=== PATIENT | male | born 1965 | race Caucasian/White ===

== ENCOUNTER → 2020-04-11 13:16 | Outpatient (CLI) | payer BC, SELFPAY ==
[2020-03-24 14:03] VITALS: BMI 43.1
--- NOTE | 2020-04-11 13:37 | CT_ITS ---
STUDY: CT ABDOMEN AND PELVIS WITH CONTRAST REASON FOR EXAM: Male, 54 years old. INTERMITTENT MID ABD PAIN WITH NAUSEA RADIATION DOSAGE (If Supplied By Facility): CTDIvol = ( 18.57 ) mGy, DLP = ( 1298.91 ) mGycm TECHNIQUE: Transaxial images were obtained from the dome of the diaphragm to the symphysis pubis with oral contrast. Oral and amp; IV Readi-CAT and amp; 100mL Isovue-300 was administered. Sagittal and coronal images were reconstructed. Individualized dose optimization techniques were used for this CT. COMPARISON: None. FINDINGS: The visualized lung bases are unremarkable. The visualized portions of the heart are within normal limits. There is decreased attenuation of the liver consistent with steatosis. Normal gallbladder and extrahepatic biliary system. There is mild splenomegaly. Normal pancreas. Normal bilateral adrenal glands. Normal right kidney. Normal left kidney. There is a small hiatal hernia. Normal small intestine. There are scattered colonic diverticula consistent with diverticulosis. The appendix is visualized and appears normal. Normal abdominal aorta. Normal inferior vena cava. There is borderline retroperitoneal lymphadenopathy with enlarged nodes no greater than 10mm in the short axis diameter. Normal urinary bladder. Focal central prostatic calcification. There is a small umbilical hernia containing fat. Small left inguinal hernia containing fat. There are mild degenerative changes of the visualized lower lumbar spine. CT/Abdomen/Pelvis WITH Contrast IMPRESSION: Small umbilical hernia and left inguinal hernia containing fat. Diffuse fatty infiltration of the liver. Mild degree of splenomegaly. Electronically Signed: Lukas Proctor, at 15:11 EST , Service support ,
== END ==
PROVIDERS: PCP Family Medicine; Referring Provider Surgery; Visit Provider Surgery
DX: R10.9 Unspecified abdominal pain (principal); R11.10 Vomiting, unspecified
CPT/HCPCS: 74177; Q9967; A4216

== ENCOUNTER 2020-04-13 21:12 | Emergency (ER) | payer BC, SELFPAY ==
[2020-04-13 21:13] VITALS: BP 153/119; PULSE 93; RESP 20; TEMP 36.6; O2SAT 98; BMI 42.5
[2020-04-13 21:58] VITALS: BP 161/109; PULSE 93; RESP 20; TEMP 36.6; O2SAT 98
--- NOTE | 2020-04-13 22:18 | ED.VIS.GEN ---
History of Present Illness Chief Complaint: Abd Pain Informant: Patient Narrative: D4-year-old male presenting with abdominal pain. He states it currently is resolving. He states he is has waves of pain over his entire abdomen. This is been an issue for about a year. He followed up outpatient with his PCP who referred him to Dr. Sood. Dr. Sood examined him and sent him for a CT. His CT of the abdomen pelvis was negative. Patient says that Dr. Sood says he had might have a slight umbilical hernia. Patient does have associated nausea with this. He is not vomiting. He denies constipation or diarrhea. No fever or chills. He states that he has been trying to modify his diet and see what triggers his abdominal pain. Today he had eggs and toast for breakfast and avocado with tomato for lunch. Past Medical History - Allergies and Home Meds Allergies/Adverse Reactions: Allergies No Known Allergies Allergy (Verified 04/12/20 08:56) Primary Care Physician: Winston Gan [Primary Care Provider] - Prior records reviewed: Yes Past Medical History: - - GERD, umbilical hernia Lives: With Family Smoking Status: Never smoker Alcohol: None Drugs: None Review of Systems General: Denies: Chills, Fever, Sweats Eyes: Denies: Visual changes - bilaterally, Diplopia ENT: Denies: Rhinorrhea, Sore throat Cardiovascular: Denies: Chest pain, Palpitations Respiratory: Denies: Dyspnea, Cough, Dyspnea on exertion Gastrointestinal: Reports: Abdominal pain, Nausea. Denies: Vomiting, Diarrhea Genitourinary: Denies: Dysuria, Hematuria, Frequency Musculoskeletal: Denies: Back pain, Extremity Pain Skin: Denies: Rash, Wounds Neurological: Denies: Headache, Weakness, Numbness Physical Exam Vital Signs/Narrative: Vital Signs Temp Pulse Resp BP Pulse Ox 04/13/20 21:58 97.8 F 93 20 H 161/109 H 98 04/13/20 21:13 97.8 F 93 20 H 153/119 H 98 General: Obese, No Acute Distress Head: Normocephalic, Atraumatic Eyes: Perrl, EOMI ENT: Moist mucous membranes Cardiovascular: Regular rate, Regular rhythm Respiratory: No distress, CTA bilaterally Abdomen: Soft, Tender - Mild diffuse tenderness. Back: Nontender, Normal Inspection Extremities: Nontender, No edema Skin: Normal color, No rash Neurological: Alert, Oriented x3 Psychological: Normal affect Diagnostic/Tx/Re-eval Laboratory Data 04/13/20 04/13/20 21:25 21:25 WBC 8.8 RBC 5.60 Hgb 17.6 H Hct 50.8 MCV 90.7 MCH 31.4 MCHC 34.6 RDW Std Deviation 40.4 RDW Coeff of Paulina 12.4 Plt Count 295 MPV 9.7 Immature Gran % (Auto) 0.800 Neut % (Auto) 46.0 L Lymph % (Auto) 37.0 [place] % (Auto) 11.4 H Eos % (Auto) 4.0 Baso % (Auto) 0.8 Absolute Neuts (auto) 4.0 Absolute Lymphs (auto) 3.25 Nucleated RBC % 0 Sodium 138 Potassium 4.0 Chloride 104 Carbon Dioxide 25.0 Anion Gap 9 BUN 21 H Creatinine 1.53 H Estim Creat Clear Calc 55.66 Est GFR (MDRD) Af Amer 61 Est GFR (MDRD) Non-Af 50 L BUN/Creatinine Ratio 13.7 Glucose 142 H Calcium 9.7 Total Bilirubin 0.40 AST 24 ALT 58 Alkaline Phosphatase 62 Total Protein 8.1 Albumin 4.1 Globulin 4.0 Albumin/Globulin Ratio 1.0 Lipase 118 - Medical Decision Making Patient presents with abdominal pain. He states that it is improving now. He states he has had this for about a year on and off. He has had a CT this week with Dr. Sood. On exam he has mild generalized pain. He has no focal tenderness. He is nonperitoneal. He declines anything for pain. His lab work was normal. On reevaluation he is pain-free and felt well. I do not believe he needs a repeat CT scan at this time. Patient is amenable to this plan. He is given return precautions. Impression: 1. Abdominal pain unknown cause male ED Disposition - Plan for ED Patient: Disposition: Home or Assisted Living Instructions: ED Unknown Causes of Abdominal ... Referrals: Winston Gan [Primary Care Provider] -
[2020-04-13 23:33] LABS: Absolute Lymphocyte Count 3.25 X10^3/uL (0.83-4.51); Basophil# 0.07 X10^3/uL; Basophil% 0.8 % (0-1); Eosinophil# 0.35 X10^3/uL; Hematocrit 50.8 % (40-54); Hemoglobin 17.6 g/dL (13.0-16.5); Lymphocyte # 3.25 X10^3/ul (4.0); Mean Corp Hgb Conc 34.6 g/dL (32-36); Mean Corpuscular Hgb 31.4 pg (27.0-32.0); Mean Corpuscular Volume 90.7 fL (80-94); Mean Platelet Vol. 9.7 fl (6.2-12.0); Monocyte% 11.4 % (0-10); NRBC Flagged by Analyzer 0 % (0-5); Neutrophil # 4.04 X10^3/uL (2.7-7.7); Platelet Count 295 K/mm3 (150-450); RBC Distribution Width CV 12.4 % (11.6-14.6); RBC Distribution Width SD 40.4 fl (35.1-43.9); White Blood Count 8.8 K/mm3 (4.4-11.0)
[2020-04-13 23:38] LABS: AST(SGOT) 24 U/L (15-37); Alanine Aminotransfer ALT/SGPT 58 U/L (16-61); Albumin, Serum 4.1 g/dL (3.2-5.0); Alkaline Phosphatase 62 U/L (45-117); Anion Gap 9 (5-15); BUN 21 mg/dL (7-18); BUN/Creat Ratio 13.7 RATIO (10-20); Calcium,Total 9.7 mg/dL (8.5-10.1); Chloride 104 mmol/L (98-107); Creatinine, Serum 1.53 mg/dL (0.70-1.30); EST Glomerular Filtration Rate 50 mL/min (>60); Est Glom Filt Rate - Afr Amer 61 mL/min (>60); Estimated Creatinine Clearance 55.66 ml/min; Glucose 142 mg/dL (74-106); Lipase 118 U/L (73-393); Protein, Total 8.1 g/dL (6.4-8.2); Sodium Level 138 mmol/L (136-145)
== END 2020-04-14 00:30 | disposition home or self-care (01) ==
PROVIDERS: Emergency Provider Student in an Organized Health Care Education/Training Program; PCP Family Medicine
DX: R10.84 Generalized abdominal pain (principal); K21.9 Gastro-esophageal reflux disease without esophagitis; R11.0 Nausea; E66.9 Obesity, unspecified
CPT/HCPCS: 80053; 83690; 85025; 99283; A4216

== ENCOUNTER → 2020-04-15 09:57 | Outpatient (CLI) | payer BC, SELFPAY ==
[2020-04-13 21:13] VITALS: BMI 42.5
[2020-04-15 12:26] LABS: Anion Gap 5 (5-15); BUN 22 mg/dL (7-18); BUN/Creat Ratio 15.3 RATIO (10-20); Calcium,Total 8.9 mg/dL (8.5-10.1); Chloride 105 mmol/L (98-107); Creatinine, Serum 1.44 mg/dL (0.70-1.30); EST Glomerular Filtration Rate 54 mL/min (>60); Est Glom Filt Rate - Afr Amer 65 mL/min (>60); Glucose 182 mg/dL (74-106); Hemoglobin A1c 6.2 % (3.8-5.6); Potassium 3.9 mmol/L (3.5-5.1); Sodium Level 135 mmol/L (136-145)
== END ==
PROVIDERS: PCP Family Medicine; Visit Provider Family Medicine
DX: R73.9 Hyperglycemia, unspecified (principal); R10.9 Unspecified abdominal pain; N28.9 Disorder of kidney and ureter, unspecified
CPT/HCPCS: 36415; 80048; 83036

== ENCOUNTER 2020-05-18 08:47 | Day surgery (SDC) | payer BC, SELFPAY ==
[2020-05-10 08:53] VITALS: BMI 42.3
--- NOTE | 2020-05-17 10:37 | EKG12_ITS ---
Test Reason : PREOP Blood Pressure : / mmHG Vent. Rate : 073 BPM Atrial Rate : 073 BPM P-R Int : 164 ms QRS Dur : 102 ms QT Int : 390 ms P-R-T Axes : 022 -23 012 degrees QTc Int : 429 ms Normal sinus rhythm with occasional PVC's Leftward axis Poor R wave progression Confirmed by SHAUN BROCK, CARSON ([id number]), sound editor JAZMYNE VELASCO ([id number]) on 05/18/2020 8:23:51 AM Referred By: Reza Sood Confirmed By:CARSON DUNN MD
--- NOTE | 2020-05-18 05:00 | HP_ITS ---
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 Is patient in pain?: No Allergies No Known Allergies Allergy (Verified 05/10/20 08:54) Medications No Known/Unobtainable [No Known Home Medications] 02/13/16 [History Confirmed 05/10/20] [facility] Medical History GERD (gastroesophageal reflux disease) (Acute) Left inguinal hernia (Acute) Obesity (Acute) Umbilical hernia (Acute) Surgical History History of arthroscopy of right knee (Acute) History of arthroscopy of right knee (Acute) History of colonoscopy (Acute ~2012) Family History Father Heart disease Hypertension Mother Heart disease Hypertension Social History (Updated 05/10/20 @ 09:25 by Kika GARCIA PASwapnaC) Smoking Status: Never smoker HPI HPI Surgical H&P: Yes HPI: MELINDA RECIO, is a 54 M who presents to the office today for an update history and physical. Patient notes he was in the ED with abdominal pain due to the hernia the day after his office visit. Patient denies any further hospitalizations or illnesses. He denies previous cardiac or pulmonary history. He denies history of COVID or recently being exposed to COVID. He denies further pain/discomfort at the hernia site. He denies smoking. Occasionally drinks alcohol. He notes possibly having sleep apnea however he has not been diagnosed. Patient's previous history per Dr. Sood: MELINDA RECIO, is a 54 M who presents to the office today for Follow-up from a CAT scan of his abdomen and pelvis. This is tender it gets hard at times when he is standing he has not noticed any change in his bowel or bladder habits but he has been having increasing nausea. This is been increasing over the last [address] scan confirms a ventral hernia as well as an umbilical hernia. It also raised the question of a left inguinal hernia. He is not experiencing any bulges or discomfort in his left inguinal area. ROS General General: Yes weight change; no appetite, fatigue, colon cancer, breast cancer or weakness HEENT HEENT: No difficulty swallowing, eye injury, eye surgery, swollen glands or hoarseness Endo Endocrine: No thyroid disease, diabetes mellitus, thyroid cancer, Hair loss, heat intolerance or cold intolerance Musc Musculoskeletal: No back problems, arthritis, rheumatoid arthritis, gout or joint pain Cardio Cardiovascular: Yes high blood pressure; no murmur, pacemaker, heart disease, atrial fibrillation, heart attack, heart stent, palpitations, shortness of breat with exertion or chest pain Psych Psychiatric: No depression, anxiety or hearing voices Resp Respiratory: No shortness of breath, No sleep apnea, No cough, No COPD, No asthma, No emphysema, No wheezing Gastro Gastrointestinal: Yes abdominal pain, Yes nausea or vomiting, No diarrhea, No constipation, No blood in stool, Yes acid reflux, No hemorrhoids, No ulcers, No gallbladder problem, No black,tarry stools Neuro Neurologic: No weakness Exam Const General: cooperative, healthy appearing, comfortable, no acute distress [facility] Head: normal to inspection Eyes General: appearance normal, both eyes and all related structures Neck Neck: normal visual inspection Neck mass: No Resp Effort & Inspection: normal respiratory effort Auscultation: clear to auscultation bilaterally Cardio Rate: regular rate Rhythm: regular rhythm Heart Sounds: no murmurs GI Inspection: normal to inspection, obesity Palpation: soft, hernia (small easily reducible) ventral Auscultation: normal bowel sounds Skin General: no rashes or lesions noted Neuro General: no focal motor deficits, CN's II-XI intact bilaterally Extrem General: normal to inspection Psych Appearance: grossly normal Affect: normal affect Assessment & Plan Problems 1. Ventral incisional hernia without obstruction or gangrene K43.[address] Sood will plan to perform a ventral hernia repair with mesh. Procedure details risks and benefits have been reviewed. Patient has had the opportunity to ask and have questions answered. Patient verbally understands and agrees with the plan. Coding Level of Care Code No Charge Diagnoses Ventral incisional hernia without obstruction or gangrene K43.2 Comment Update H&P I have re-examined the patient. There are no clinical changes since date of exam.
[2020-05-18] MEDS: Lactated Ringers 1,000 ML 100 ML IV ×2 (09:44→11:01)
[2020-05-18 09:45] VITALS: BP 148/93; PULSE 68; RESP 16; TEMP 36.6; O2SAT 95; BMI 43.4
[2020-05-18] MEDS: Cefazolin 2 GM in 0.9% Normal Saline 100 ML IV (10:10)
--- NOTE | 2020-05-18 10:20 | PCM.OPRPT ---
Problem List (1) Ventral hernia Status: Acute Qualifiers: Obstruction and gangrene presence: without obstruction or gangrene Qualified Code(s): K43.9 - Ventral hernia without obstruction or gangrene Report of Operation Date of Procedure: 05/18/20 Pre-Operative Diagnosis: Ventral hernia without obstruction or gangrene Post-Operative Diagnosis: Same Surgery/Procedure Performed:: Ventral hernia repair with mesh Type of Anesthesia:: General Anesthesiologist: Dario Clemons Estimated Blood Loss (mL): < 25 cc Description of Procedure: Patient was brought into the operating room. Placed in the supine position. Under excellent general trach intubation the abdomen was sterilely prepped draped in usual fashion. Local was injected supraumbilically. Curvilinear incision was made. Dissection was carried down to the ventral hernia. Ventral hernia was placed back into its preperitoneal space. Electrocautery was used to create a preperitoneal window circumferentially around this ventral hernia defect. I fashioned a large Ventralex mesh into the peritoneal space. I circumferentially tacked it to the surrounding fascia with #1 Nurolon's. I injected 1% lidocaine plain. I was pleased the mesh laid completely flat I had no bleeding whatsoever. I injected local in the subcu. Subcu was brought together with 2-0 Vicryl. Deep dermals of 3-0 Vicryl. Then a running 4-0 Monocryl in the skin. Steri-Strips were applied sterile dressings were applied and the patient tolerated the procedure well. - Admit VTE Documentation VTE Present on Admission: No VTE Mechan Device Prophylaxis: SCD's VTE Pharm Prophylaxis ordered?: No Reason prophylaxis not ordered:: Treatment Not Indicated [id number]: Other Procedure See Notes - [id number]
--- NOTE | 2020-05-18 10:21 | PCM.DC.HER ---
Discharge Diet: Light diet - advance as tolerated Discharge Activity: Return to Normal Activity, May Drive - when you are no longer taking narcotic pain medications., May Shower - with the bandage in place 1-2 days after surgery. Lifting Restrictions: 20 pounds for 8 weeks. Additional Activity Instructions:: Climbing stairs is fine, walking is encouraged. Sitting in bed may be uncomfortable. Sitting up using your lateral muscles (sitting up sideways) is usually more comfortable. Do not drive, work heavy equipment of sign legal documents for 24 hours. If your hernia repair was an ingunial repair, you may have scrotal swelling, an ice pack and/or athletic support can provide more comfort. Pain medications may cause nausea, you should typically eat light foods as you take your pain medications. Pain medications may also cause constipation. If you have difficulty with this, discuss with your doctor. Call your doctor if your incision/area has: Continuous Slow Oozing, Sudden Increased Bleeding, Increased Pain/ Swelling, Increased Redness, Foul Smelling Discharge Call your doctor if you observe: Fever of 101 or Higher Suture Line Care: Avoid Pulling/Pushing, Avoid Pinching/Bending Additional Dressing/Incision Instructions:: Leave the operative bandage on for 2-3 days. When you remove the bandage, leave the steri-strips on place until your follow up appointment or they fall off. Allergies/Adverse Reactions: Allergies No Known Allergies Allergy (Verified 05/18/20 09:44) Medications to take at Discharge Oxycodone HCl/Acetaminophen [Percocet 5/325] 1 - 2 tab PO Q4H PRN PRN 6 Days #30 tab 05/18/20 The following prescriptions were given: Oxycodone HCl/Acetaminophen [Percocet 5/325] 1 - 2 tab PO Q4H PRN PRN 6 Days #30 tab PRN Reason: Pain Transmission Status: Received by [facility] Primary Care Physician: Winston Gan [Primary Care Provider] - Test Results: Test results from this visit will be discussed in further detail at your follow-up appointment, if applicable. Please Follow Up With: Reza Sood MD - [phone] When: Plan to have a follow up appointment in 7 days. Call to schedule.
[2020-05-18] MEDS: Bupivacaine Mpf 0.5% 30 ML VIAL (10:53)
[2020-05-18 11:24] VITALS: BP 131/80; BP 148/93; PULSE 92; RESP 18; TEMP 36.8; O2SAT 98
[2020-05-18 11:45] VITALS: BP 118/94; BP 148/93; PULSE 79; RESP 18; O2SAT 93
[2020-05-18 12:00] VITALS: BP 118/79; BP 148/93; PULSE 76; RESP 18; TEMP 36.7; O2SAT 93
[2020-05-18 13:23] VITALS: BP 131/93; BP 148/93; PULSE 75; RESP 16; TEMP 36.4; O2SAT 98
== END 2020-05-18 13:26 | disposition home or self-care (01) ==
LOC: SDC 08:48 → AC 08:49
PROVIDERS: PCP Family Medicine; Referring Provider Surgery; Visit Provider Surgery
PROC: (CPT 49560; principal; 2020-05-18 10:00)
DX: K43.2 Incisional hernia without obstruction or gangrene (principal); Z20.822 Contact with and (suspected) exposure to COVID-19
CPT/HCPCS: 00832; 49560; 49568; 87426; 93005; C9803; J7120; C1781; J2405

== ENCOUNTER → 2020-07-11 | Outpatient (CLI) | payer BC, SELFPAY | END | disposition home or self-care (01) | LOC: LABSPEC 11:22 | PROVIDERS: PCP Family Medicine; Visit Provider Family Medicine | DX: Z20.828 Contact with and (suspected) exposure to other viral communicable diseases (principal) | CPT/HCPCS: 87635; U0005; U0003 ==

== ENCOUNTER → 2021-01-19 | Outpatient (CLI) | payer BC, SELFPAY | END | disposition home or self-care (01) | LOC: LABSPEC 17:14 | PROVIDERS: PCP Family Medicine; Visit Provider Family Medicine | DX: Z20.822 Contact with and (suspected) exposure to COVID-19 (principal) | CPT/HCPCS: 87635; U0005; U0003 ==

== ENCOUNTER → 2022-12-06 | Outpatient (CLI) | payer BC, SELFPAY ==
[2022-12-06 12:45] LABS: Absolute Lymphocyte Count 2.51 X10^3/uL (0.83-4.51); Absolute Neutrophil Count 2.4 X10^3/uL (2.0-7.7); Basophil# 0.04 X10^3/uL; Basophil% 0.7 % (0-1); Eosinophil# 0.26 X10^3/uL; Eosinophils% 4.4 % (0-5); Hematocrit 47.1 % (40-54); Hemoglobin 15.8 g/dL (13.0-16.5); Lymphocyte # 2.51 X10^3/ul (0.83-4.51); Mean Corp Hgb Conc 33.5 g/dL (32-36); Mean Corpuscular Hgb 30.6 pg (27.0-32.0); Mean Corpuscular Volume 91.3 fL (80-94); Mean Platelet Vol. 9.6 fl (6.2-12.0); Monocyte# 0.71 X10^3/uL; Monocyte% 11.9 % (0-10); NRBC Flagged by Analyzer 0 % (0-5); Neutrophil # 2.42 X10^3/uL (2.7-7.7); Neutrophil % 40.5 % (47-70); Platelet Count 200 K/mm3 (150-450); RBC Distribution Width CV 12.1 % (11.6-14.6); RBC Distribution Width SD 40.5 fl (35.1-43.9); Red Blood Count 5.16 M/mm3 (4.6-6.2)
[2022-12-06 13:12] LABS: AST(SGOT) 19 U/L (15-37); Alanine Aminotransfer ALT/SGPT 46 U/L (16-61); Albumin, Serum 3.6 g/dL (3.2-5.0); Alkaline Phosphatase 55 U/L (45-117); Anion Gap 6 (5-15); BUN 20 mg/dL (7-18); BUN/Creat Ratio 16.7 RATIO (10-20); Calcium,Total 8.6 mg/dL (8.5-10.1); Chloride 103 mmol/L (98-107); Cholesterol 215 mg/dL (200); EST Glomerular Filtration Rate 66 mL/min (>60); Est Glom Filt Rate - Afr Amer 80 mL/min (>60); Globulin 3.5 g/dL (2.2-4.2); Glucose 211 mg/dL (74-106); High Density Lipoprotein 34 mg/dL; PSA,Total - Annual Screen 0.19 ng/mL (0.00-4.00); Potassium 4.1 mmol/L (3.5-5.1); Protein, Total 7.1 g/dL (6.4-8.2); Sodium Level 134 mmol/L (136-145); Triglycerides 477 mg/dL
[2022-12-06 13:34] LABS: Microalbumin,Random Urine 22.3 mg/L (NO RANGE EST.)
== END | disposition home or self-care (01) ==
PROVIDERS: PCP Family Medicine; Referring Provider Family Medicine; Visit Provider Family Medicine
DX: Z00.00 Encounter for general adult medical examination without abnormal findings (principal); E11.65 Type 2 diabetes mellitus with hyperglycemia; Z12.5 Encounter for screening for malignant neoplasm of prostate
CPT/HCPCS: 36415; 80053; 80061; 82043; 82570; 84153; 85025; G0103

== ENCOUNTER → 2024-01-16 | Outpatient (CLI) | payer BC, SELFPAY ==
[2024-01-16 12:30] LABS: Absolute Lymphocyte Count 2.64 X10^3/uL (0.83-4.51); Basophil# 0.08 X10^3/uL; Basophil% 1.1 % (0-1); Eosinophil# 0.48 X10^3/uL; Eosinophils% 6.8 % (0-5); Hematocrit 48.2 % (40-54); Hemoglobin 16.3 g/dL (13.0-16.5); Lymphocyte # 2.64 X10^3/ul (0.83-4.51); Lymphocyte % 37.2 % (19-41); Mean Corp Hgb Conc 33.8 g/dL (32-36); Mean Corpuscular Hgb 30.8 pg (27.0-32.0); Mean Corpuscular Volume 91.1 fL (80-94); Mean Platelet Vol. 11.3 fl (6.2-12.0); Monocyte# 0.87 X10^3/uL; Monocyte% 12.3 % (0-10); NRBC Flagged by Analyzer 0.6 % (0-5); Neutrophil # 2.96 X10^3/uL (2.7-7.7); Neutrophil % 41.8 % (47-70); POSITIVE COUNT YES; RBC Distribution Width CV 12.3 % (11.6-14.6); RBC Distribution Width SD 40.6 fl (35.1-43.9); Red Blood Count 5.29 M/mm3 (4.6-6.2); White Blood Count 7.1 K/mm3 (4.4-11.0)
[2024-01-16 12:47] LABS: AST(SGOT) 24 U/L (15-37); Alanine Aminotransfer ALT/SGPT 47 U/L (16-61); Albumin, Serum 3.7 g/dL (3.2-5.0); Alkaline Phosphatase 53 U/L (45-117); Anion Gap 8 (5-15); BUN 15 mg/dL (7-18); BUN/Creat Ratio 12.4 RATIO (10-20); Calcium,Total 8.9 mg/dL (8.5-10.1); Chloride 103 mmol/L (98-107); Cholesterol 222 mg/dL (200); Creatinine, Serum 1.21 mg/dL (0.70-1.30); EST Glomerular Filtration Rate 65 mL/min (>60); Est Glom Filt Rate - Afr Amer 79 mL/min (>60); Globulin 3.6 g/dL (2.2-4.2); Glucose 157 mg/dL (74-106); High Density Lipoprotein 38 mg/dL; Potassium 4.2 mmol/L (3.5-5.1); Protein, Total 7.3 g/dL (6.4-8.2); Sodium Level 136 mmol/L (136-145); Triglycerides 464 mg/dL
[2024-01-16 13:06] LABS: Differential Comment SCANNED
[2024-01-16 13:07] LABS: Platelet Estimate ADEQUATE (ADEQ)
[2024-01-16 13:09] LABS: Microalbumin,Random Urine 25.5 mg/L (NO RANGE EST.)
== END | disposition home or self-care (01) ==
LOC: BFHLAB 10:12
PROVIDERS: PCP Family Medicine; Referring Provider Family Medicine; Visit Provider Family Medicine
DX: Z00.00 Encounter for general adult medical examination without abnormal findings (principal); E11.65 Type 2 diabetes mellitus with hyperglycemia
CPT/HCPCS: 36415; 80053; 80061; 82043; 82570; 84443; 85025

== ENCOUNTER → 2024-09-16 | Outpatient (CLI) | payer BC, SELFPAY ==
[2024-09-16 16:43] LABS: Absolute Lymphocyte Count 2.48 X10^3/uL (0.83-4.51); Absolute Neutrophil Count 3.9 X10^3/uL (2.0-7.7); Basophil# 0.06 X10^3/uL; Basophil% 0.8 % (0-1); Eosinophil# 0.29 X10^3/uL; Eosinophils% 3.6 % (0-5); Hematocrit 51.2 % (40-54); Hemoglobin 17.3 g/dL (13.0-16.5); Lymphocyte # 2.48 X10^3/ul (0.83-4.51); Mean Corp Hgb Conc 33.8 g/dL (32-36); Mean Corpuscular Volume 91.8 fL (80-94); Mean Platelet Vol. 9.8 fl (6.2-12.0); Monocyte# 1.22 X10^3/uL; Monocyte% 15.3 % (0-10); NRBC Flagged by Analyzer 0 % (0-5); Neutrophil # 3.87 X10^3/uL (2.7-7.7); Neutrophil % 48.4 % (47-70); Platelet Count 226 K/mm3 (150-450); RBC Distribution Width CV 12.6 % (11.6-14.6); RBC Distribution Width SD 42.3 fl (35.1-43.9); Red Blood Count 5.58 M/mm3 (4.6-6.2)
[2024-09-16 16:47] LABS: Erythrocyte Sedimentation Rate 9 mm/hr (0-20)
[2024-09-16 16:52] LABS: ALB/GLOB Ratio 1.4 RATIO (0.9-2.4); AST(SGOT) 24 U/L (<=37); Alanine Aminotransfer ALT/SGPT 38 U/L (<=46); Albumin, Serum 4.3 g/dL (3.4-4.8); Alkaline Phosphatase 53 U/L (40-129); Anion Gap 12 (5-15); BUN 16 mg/dL (4-19); BUN/Creat Ratio 13.7 RATIO (10-20); Calcium,Total 9.2 mg/dL (7.6-11.0); Carbon Dioxide 22.5 mmol/L (21.0-32.0); Chloride 101 mmol/L (98-108); Creatinine, Serum 1.19 mg/dL (0.70-1.20); EST Glomerular Filtration Rate 70 (>60); Globulin 3.2 g/dL (2.2-4.2); Glucose 161 mg/dL (70-99); Potassium 4.4 mmol/L (3.3-5.1); Protein, Total 7.5 g/dL (5.9-8.4); Sodium Level 136 mmol/L (133-145); Total Bilirubin 0.51 mg/dL (0.00-1.30)
[2024-09-19 16:08] LABS: Lyme IgG P18 Ab Absent (.); Lyme IgG P23 Ab Absent (.); Lyme IgG P28 Ab Absent (.); Lyme IgG P30 Ab Absent (.); Lyme IgG P39 Ab Absent (.); Lyme IgG P41 Ab Present (.); Lyme IgG P45 Ab Absent (.); Lyme IgG P58 Ab Absent (.); Lyme IgG P66 Ab Absent (.); Lyme IgG P93 Ab Absent (.); Lyme IgG WB Interpretation Negative (Negative); Lyme IgM P23 Ab Absent (.); Lyme IgM P39 Ab Absent (.); Lyme IgM P41 Ab Absent (.); Lyme IgM WB Interpretation Negative (Negative)
== END | disposition home or self-care (01) ==
LOC: MTLAB 11:21
PROVIDERS: PCP Family Medicine; Referring Provider Family Medicine; Visit Provider Family Medicine
DX: R50.9 Fever, unspecified (principal)
CPT/HCPCS: 36415; 80053; 85025; 85652; 86140; 86617; 87040

== ENCOUNTER → 2025-04-23 | Outpatient (CLI) | payer BC, SELFPAY ==
[2025-04-23 12:18] LABS: Hematocrit 51.3 % (40-54); Hemoglobin 17.7 g/dL (13.0-16.5); Immature Granulocytes Count 0.090 X10^3/uL (0.0-0.0); Mean Corp Hgb Conc 34.5 g/dL (32-36); Mean Corpuscular Volume 90.0 fL (80-94); Mean Platelet Vol. 9.3 fl (6.2-12.0); NRBC Flagged by Analyzer 0 % (0-5); Platelet Count 235 K/mm3 (150-450); RBC Distribution Width CV 12.4 % (11.6-14.6); RBC Distribution Width SD 40.5 fl (35.1-43.9); Red Blood Count 5.70 M/mm3 (4.6-6.2); White Blood Count 7.9 K/mm3 (4.4-11.0)
[2025-04-23 12:43] LABS: Creatinine, Urine (random) 164.00 mg/dL (39.00-259.00); Microalbumin,Random Urine 21.2 mg/L (<20 mg/L)
[2025-04-23 12:55] LABS: AST(SGOT) 25 U/L (<=37); Alanine Aminotransfer ALT/SGPT 43 U/L (<=46); Albumin, Serum 4.6 g/dL (3.4-4.8); Alkaline Phosphatase 49 U/L (40-129); Anion Gap 12 (5-15); BUN 17 mg/dL (4-19); BUN/Creat Ratio 13.3 RATIO (10-20); Calcium,Total 9.9 mg/dL (7.6-11.0); Carbon Dioxide 25.3 mmol/L (21.0-32.0); Chloride 98 mmol/L (98-108); Cholesterol 238 mg/dL (<=200); Globulin 3.1 g/dL (2.2-4.2); Glucose 193 mg/dL (70-99); Low Density Lipoprotein Calc. 126 mg/dL; PSA,Total - Annual Screen 0.21 ng/mL (0.02-4.00); Potassium 4.8 mmol/L (3.3-5.1); Triglycerides 406 mg/dL; Very Low Density Lipoprotein 81 mg/dL (5-40); cholesterol:hdl ratio screen 6.06
== END | disposition home or self-care (01) ==
LOC: BFHLAB 11:15
PROVIDERS: PCP Family Medicine; Visit Provider Family Medicine
DX: Z00.00 Encounter for general adult medical examination without abnormal findings (principal); E11.40 Type 2 diabetes mellitus with diabetic neuropathy, unspecified; Z12.5 Encounter for screening for malignant neoplasm of prostate
CPT/HCPCS: 36415; 80053; 80061; 82043; 82570; 83036; 84153; 85025; G0103